=== PATIENT | female | born 1995 | race Hispanic/Latino ===

== ENCOUNTER 2019-03-21 02:22 | Inpatient (IN) | payer OTHER ==
[2019-03-21] MEDS ORDERED: OXYTOCIN/LR 20 UNIT/1,000 ML BAG IV SCH (08:20)
[2019-03-21] MEDS ORDERED: Ringers Lactate 1,000 ML IV SCH (08:20)
[2019-03-21] MEDS ORDERED: Ringers Lactate 1,000 ML IV PRN (08:20)
--- OUTSIDE RECORDS SUMMARY | 2019-03-21 08:26 | XMS REPORT ---
:1995 [facility] Address [address] [place] [address] Dr. Ramsey [address] [place] [id number] Care Team Providers Name Role Phone Unavailable Unavailable Unavailable Problems This patient has no known problems. Allergies, Adverse Reactions, Alerts This patient has no known allergies or adverse reactions. Medications This patient has no known medications.
[2019-03-21] MEDS ORDERED: OXYTOCIN/LR 20 UNIT/1,000 ML BAG IV ONE (09:42)
[2019-03-21] MEDS ORDERED: METHYLERGONOVINE 0.2MG/ML AMP IM PRN (09:54)
[2019-03-21] MEDS ORDERED: BUTORPHANOL 1 MG/ML INJ IV PRN (09:54)
[2019-03-21] MEDS ORDERED: MEPERIDINE HCL 25 MG/0.5 ML IV PRN (09:54)
[2019-03-21] MEDS ORDERED: CARBOPROST TROME 250 MCG/ML IM PRN (09:54)
[2019-03-21] MEDS ORDERED: PROMETHAZINE 25 MG/ML VIAL IV PRN (09:54)
[2019-03-21 10:25] LABS: Absolute Lymphocytes (CBC) 1.7 K/uL (0.7-4.9); Basophils % 0.2 % (0-1.3); Hematocrit 34.3 % (36.0-45.0); Lymphocytes % 12.9 % (15.3-44.8); MPV 8.3 fL (7.6-11.3); RBC Red Blood Cell Count 3.85 M/uL (3.86-4.86); Urine Appearance CLEAR; Urine Bilirubin NEGATIVE (NEG); Urine Blood NEGATIVE (NEG); Urine Color YELLOW; Urine Glucose NEGATIVE (NEG); Urine Protein NEGATIVE (NEG); Urine Specific Gravity 1.015 (1.005-1.030); Urine Urobilinogen 0.2 mg/dL (0.2-1.0)
[2019-03-21 10:36] LABS: Urine Microscopic Reflex ORDER UMIC
[2019-03-21 10:42] LABS: Urine Bacteria <20 /HPF (<20); Urine Culture Reflex Order NOT NEEDED; Urine RBC <5 /HPF (NONE SEEN)
[2019-03-21 11:11] VITALS: BMI 31.8
[2019-03-21] MEDS ORDERED: PENICILLIN G POT 5 MU/100 ML VIAL IV ONE (11:44)
[2019-03-21] MEDS ORDERED: FENTANYL CITR 100 MCG/2 ML IV ONE (14:30)
[2019-03-21] MEDS ORDERED: ROPIVACAINE HCL 0.2% 20ML AMP IV ONE (14:30)
[2019-03-21] MEDS ORDERED: ROPIVACAINE HCL 100 ML IV ONE (14:55)
[2019-03-21] MEDS ORDERED: ROPIVACAINE HCL 20 ML ONE (14:55)
[2019-03-21] MEDS ORDERED: FENTANYL CITR 100 MCG/2 ML ONE (14:55)
[2019-03-21] MEDS ORDERED: ROPIVACAINE HCL 100 ML IV PRN (15:00)
[2019-03-21] MEDS ORDERED: METHYLERGONOVINE 0.2MG/ML AMP IM ONE (15:21)
[2019-03-21] MEDS ORDERED: CARBOPROST TROME 250 MCG/ML IM ONE (15:21)
[2019-03-21] MEDS ORDERED: PENICILLIN 2.5 MU in NA CHLORIDE 0.9% 100 ML IV SCH (15:30)
[2019-03-21] MEDS ORDERED: METHYLERGONOVINE 0.2 MG TAB PO PRN (16:40)
[2019-03-21] MEDS ORDERED: ACETAMINOPHEN 500 MG TAB PO PRN (16:40)
[2019-03-21] MEDS ORDERED: Oxycodone HCl/Acetaminophen 1 TAB TAB PO PRN (16:40)
[2019-03-21] MEDS ORDERED: ONDANSETRON 4 MG (ODT) TAB PO PRN (16:40)
[2019-03-21] MEDS ORDERED: BISACODYL 10 MG RECTAL SUPP RECT PRN (16:40)
[2019-03-21] MEDS ORDERED: DOCUSATE NA/SENNA CONC 1 TAB PO PRN (16:40)
--- NOTE | 2019-03-21 16:43 | P.OP ---
Date of Service: 03/21/19 Findings and Operative Technique FINDINGS: Female fetus in IVONNE position, APGARS of 9/9 at 1 and 5 minutes respectively, weight of 5 lb 3 oz, clear amniotic fluid. Nuchal cord x1. Normal appearing placenta. First degree midline laceration. Stage I: 5 h 8 min ; Stage II: 8 min. HISTORY OF PRESENT ILLNESS: The patient is a 23 year-old female who is a at 39 weeks and 3 days gestation who was admitted for an elective induction of labor. She had adequate care and was complicated by anemia for which she was taking iron. Labs were normal and she had otherwise routine care. On admission, she was noted to be 1cm. She denied complaints and noted positive movement. PROCEDURE DETAILS: The patient was admitted to Labor and Delivery for induction , which was done with pitocin. She requested an epidural for pain control, which was placed with good result. AROM was done, with clear fluid noted. Labor progressed normally. She had a spontaneous vaginal delivery of a live born female with clear fluid from an IVONNE position over an episiotomy. After controlled delivery of the head , a nuchal cord was noted, which was quickly reduced. Next, the shoulders and body followed without difficulty. Bulb suctioning was done. The was placed on the patient's abdomen for skin to skin contact. The cord was clamped and cut. Findings as stated above. There was no depression. Infant was crying, vigorous, and moving all extremities. Spontaneous delivery of an intact placenta with a three-vessel cord was noted at 16:30. On examination, there was 1st degree midline laceration. It was repaired by placing a figure of 8 using 2-0 vicryl. On vaginal exam, there were no noted cervical or vaginal sidewall lacerations. Patient tolerated procedure well and there were no complications. Estimated blood loss was 300 cc. Mother and infant are in recovery doing well at this time.
[2019-03-21] MEDS: IBUPROFEN 200 MG TAB PO PRN (18:10)
[2019-03-21 23:08] LABS: RPR (Rapid Plasma Reagin) NON-REACT (NON-REACT)
[2019-03-22 06:38] LABS: Absolute Lymphocytes (CBC) 2.7 K/uL (0.7-4.9); Basophils % 0.5 % (0-1.3); Hematocrit 28.3 % (36.0-45.0); Lymphocytes % 17.9 % (15.3-44.8); MPV 8.1 fL (7.6-11.3)
[2019-03-22] MEDS ORDERED: DOCUSATE NA 100 MG CAP PO PRN (09:34)
[2019-03-22] MEDS: IBUPROFEN 200 MG TAB PO PRN (12:08)
[2019-03-22] MEDS ORDERED: PRENATAL VITAMIN PO ONE (12:22)
[2019-03-22] MEDS ORDERED: FERROUS SULFATE 325 MG TAB PO ONE (12:23)
[2019-03-22 17:34] VITALS: BP 108/58; TEMP 98.5
[2019-03-22] MEDS ORDERED: FERROUS SULFATE 325 MG TAB PO SCH (21:00)
--- NOTE | 2019-03-22 21:27 | P.DS ---
Admission Date: 03/21/19 Discharge Date: 03/22/19 Disposition: ROUTINE DISCHARGE Discharge Condition: GOOD Reason for Admission: Induction of labor Procedures: Artificial rupture of membranes Epidural pllacement Vaginal delivery over midline episiotomy Repair of episiotomy Brief History of Present Illness: See H&P scanned Hospital Course: Patient progressed in labor well. She delivered a baby girl vaginally and is doing well. Her pain is well controlled. She is voiding well and ambulating without difficulty. She is tolerating a regular diet. She is bonding well with the baby. She is not breast feeding. Encouraged patient to breast feed. Vital Signs/Physical Exam: Temp Pulse Resp BP Pulse Ox 98.5 F 70 16 108/58 L 100 03/22/19 16:00 03/22/19 16:00 03/22/19 16:00 03/22/19 16:00 03/22/19 05:30 General: Alert, In no apparent distress, Oriented x3 HEENT: Atraumatic Neck: Supple Gastrointestinal: Soft and benign (fundus firm and palpable beneath umbilicus) Musculoskeletal: No clubbing, No swelling Integumentary: No rashes, No breakdown Laboratory Data at Discharge: WBC 15.0 K/uL (4.3-10.9) H 03/22/19 06:20 Hgb 9.5 g/dL (12.0-15.0) L 03/22/19 06:20 Hct 28.3 % (36.0-45.0) L D 03/22/19 06:20 Plt Count 220 K/uL (152-406) 03/22/19 06:20 Home Medications: Iron Carb,Gl/FA/B12/C/Docusate [Ferralet 90 Tablet] 1 tab PO DAILY 03/21/19 Pnv72/Iron,Carb&Glu/FA/Dss/Dha [Citranatal 90 Dha Combo Pack] 1 tab PO DAILY Diet: Regular Activity: No lifting more than 10 lbs Followup: Carrington Park DO [ACTIVE - CAN ADMIT] - (Follow up care with Dr. Park in 6 weeks for post visit.)
[2019-03-23] MEDS ORDERED: PRENATAL VITAMIN PO SCH (09:00)
[2019-03-24 19:38] LABS: HBsAG Nonreactive (Nonreactive)
== END 2019-03-22 18:30 | disposition home or self-care (01) | DRG 807 ==
LOC: 2ND-WC 08:23
PROVIDERS: ADMIT Student in an Organized Health Care Education/Training Program; ATTEND Student in an Organized Health Care Education/Training Program
PROC: 10E0XZZ Delivery of Products of Conception, External Approach (ICD-10-PCS; principal; 2019-03-21)
PROC: 0W8NXZZ Division of Female Perineum, External Approach (ICD-10-PCS; 2019-03-21)
PROC: 3E033VJ Introduction of Other Hormone into Peripheral Vein, Percutaneous Approach (ICD-10-PCS; 2019-03-21)
DX: O36.5930 Maternal care for other known or suspected poor fetal growth, third trimester, not applicable or unspecified (principal); Z37.0 Single live birth; Z3A.39 39 weeks gestation of pregnancy; O69.81X0 Labor and delivery complicated by cord around neck, without compression, not applicable or unspecified; O99.02 Anemia complicating childbirth; D64.9 Anemia, unspecified
CPT/HCPCS: 36415; 81003; 81015; 85025; 86592; 86850; 86900; 86901; 87340; J2210; J2590; J2795; J3010

== ENCOUNTER 2020-12-05 14:43 | Emergency (ER) | payer OTHER ==
--- OUTSIDE RECORDS SUMMARY | 2020-12-05 14:46 | XMS REPORT | Continuity of Care Document ---
:1995 Author Organization [facility] t Address [address] [place] [address] Dr. Ramsey [address] [place] [id number] Care Team Providers Name Role Phone Unavailable Unavailable Unavailable Problems This patient has no known problems. Allergies, Adverse Reactions, Alerts This patient has no known allergies or adverse reactions. Medications This patient has no known medications. Procedures This patient has no known procedures. Results This patient has no known results.
[2020-12-05 15:08] LABS: Urine Blood Negative (Negative); Urine Glucose Negative (Negative); Urine Protein Negative (Negative); Urine Specific Gravity 1.025 (1.005-1.030)
--- NOTE | 2020-12-05 16:21 | EDPHYS ---
Physician Documentation [facility] Name: Indira Fernandez Age: 25 yrs Sex: Female : 1995 Arrival Date: 12/05/2020 Time: 14:47 Bed 26 Private MD: ED Physician Enrique Muro HPI: 12/05 16:26 This 25 yrs old Female presents to ER via Ambulatory with complaints of Vag kb Spotting- 6Wks Preg. 16:26 The patient presents to the emergency department with vaginal bleeding, described as kb spotting. Previous pregnancies: in previous pregnancies patient has had. Associated signs and symptoms: Pertinent positives: vaginal bleeding. The patient has not experienced similar symptoms in the past. The patient has not recently seen a physician. Pt reports spotting that started yesterday and positive test last week. States she has an IUD so she isn't sure what is going on. Historical: - Allergies: 14:55 No Known Allergies; ll1 - PMHx: 14:55 None; ll1 - PSHx: 14:55 None; ll1 - Immunization history:: Flu vaccine is not up to date. - Social history:: Smoking status: Patient denies any tobacco usage or history of. ROS: 16:21 Constitutional: Negative for fever, chills, and weight loss, Cardiovascular: Negative kb for chest pain, palpitations, and edema, Respiratory: Negative for shortness of breath, cough, wheezing, and pleuritic chest pain, Abdomen/GI: Negative for abdominal pain, nausea, vomiting, diarrhea, and constipation, MS/Extremity: Negative for injury and deformity, Skin: Negative for injury, rash, and discoloration, Neuro: Negative for headache, weakness, numbness, tingling, and seizure. 16:21 : Positive for spotting. Exam: 16:21 Constitutional: This is a well developed, well nourished patient who is awake, alert, kb and in no acute distress. Head/Face: Normocephalic, atraumatic. Respiratory: Respirations even and unlabored. No increased work of breathing, no retractions or nasal flaring. Skin: Warm, dry with normal turgor. Normal color. MS/ Extremity: Pulses equal, no cyanosis. Neurovascular intact. Full, normal range of motion. Neuro: Awake and alert, GCS 15, oriented to person, place, time, and situation. Moves all extremities. Normal gait. Vital Signs: 14:52 BP 140 / 107; Pulse 84; Resp 17; Temp 98.4; Pulse Ox 100% ; Weight 56.25 kg; Height 4 ll1 ft. 10 in. (147.32 cm); Pain 4/10; 14:52 Body Mass Index 25.92 (56.25 kg, 147.32 cm) ll1 MDM: 15:54 Patient medically screened. kb 16:21 Data reviewed: vital signs, nurses notes. Data interpreted: Pulse oximetry: on room air kb is 100 %. Interpretation: normal. Counseling: I had a detailed discussion with the patient and/or guardian regarding: the historical points, exam findings, and any diagnostic results supporting the discharge/admit diagnosis, radiology results, the need for outpatient follow up, an OB/Gyne specialist, to return to the emergency department if symptoms worsen or persist or if there are any questions or concerns that arise at home. 16:23 ED course: Pt educated that test was negative. Pt will follow up with [facility]. kb 12/05 15:08 Order name: Urine Dipstick-Ancillary; Complete Time: 15:10 [facility] 12/05 15:30 Order name: Urine --Ancillary (enter results) bd Administered Medications: No medications were administered Disposition: 16:22 Irregular vaginal bleeding/spotting. 12/06 07:23 Co-signature as Attending Physician, Enrique Muro MD I agree with the assessment and kdr plan of care. Disposition: 12/05/20 16:21 Discharged to Home. Impression: Encounter for screening, unspecified. - Condition is Stable. - Medication Reconciliation Form, Thank You Letter, Antibiotic Education, Prescription Opioid Use form. - Follow up: Emergency Department; When: As needed; Reason: Worsening of condition. Follow up: Private Physician; When: 2 - 3 days; Reason: Recheck today's complaints, Continuance of care, Re-evaluation by your physician. Signatures: Dispatcher [employer] [facility] Marian Callaway FNP-C FNP-Ckb Rittger, Kevin, MD MD [facility] Greta Cheek RN RN Fan Rodriguez RN RN ll1 Corrections: (The following items were deleted from the chart) 12/05 16:23 16:22 Encounter for test hawk arechiga 16:28 16:21 12/05/2020 16:21 Discharged to Home. Impression: Encounter for screening, ss unspecified. Condition is Stable. Forms are Medication Reconciliation Form, Thank You Letter, Antibiotic Education, Prescription Opioid Use. Follow up: Emergency Department; When: As needed; Reason: Worsening of condition. Follow up: Private Physician; When: 2 - 3 days; Reason: Recheck today's complaints, Continuance of care, Re-evaluation by your physician. kb
--- NOTE | 2020-12-05 16:21 | ER ---
Nurse's Notes [facility] Name: Indira Fernandez Age: 25 yrs Sex: Female : 1995 Arrival Date: 12/05/2020 Time: 14:47 Bed 26 Private MD: Diagnosis: Encounter for screening, unspecified Presentation: 12/05 14:52 Chief complaint: Patient states: Spotting since 3 am. Had a positive test ll1 last week. Has IUD in. G3, P2. Coronavirus screen: Client denies travel out of the [place] in the last 14 days. At this time, the client does not indicate any symptoms associated with coronavirus-19. Ebola Screen: Patient denies travel to an Ebola-affected area in the 21 days before illness onset. Initial Sepsis Screen: Does the patient meet any 2 criteria? No. Patient's initial sepsis screen is negative. Does the patient have a suspected source of infection? Yes: Other: spotting/pelvic pain. Risk Assessment: Do you want to hurt yourself or someone else? Patient reports no desire to harm self or others. Onset of symptoms was December 05, 2020. 14:52 Method Of Arrival: Ambulatory ll1 14:52 Acuity: MARISA 3 ll1 Historical: - Allergies: 14:55 No Known Allergies; ll1 - PMHx: 14:55 None; ll1 - PSHx: 14:55 None; ll1 - Immunization history:: Flu vaccine is not up to date. - Social history:: Smoking status: Patient denies any tobacco usage or history of. Screenin:26 Abuse screen: Denies threats or abuse. Denies injuries from another. Nutritional ss screening: No deficits noted. Tuberculosis screening: Never had TB. Fall Risk None identified. Assessment: 16:26 General: Appears in no apparent distress. comfortable, Behavior is calm, cooperative. ss Pain: Denies pain. Neuro: Level of Consciousness is awake, alert, obeys commands, Oriented to person, place, time, situation. Cardiovascular: Capillary refill < 3 seconds is brisk in bilateral fingers. Respiratory: Airway is patent Respiratory effort is even, unlabored, Respiratory pattern is regular, symmetrical. GI: Patient currently denies diarrhea, nausea, vomiting. : Reports vaginal spotting. EENT: Nares are clear Oral mucosa is moist. Throat is clear. Derm: Skin is intact, is healthy with good turgor, Skin is dry, Skin is pink, warm \T\ dry. normal. Vital Signs: 14:52 BP 140 / 107; Pulse 84; Resp 17; Temp 98.4; Pulse Ox 100% ; Weight 56.25 kg; Height 4 ll1 ft. 10 in. (147.32 cm); Pain 4/10; 14:52 Body Mass Index 25.92 (56.25 kg, 147.32 cm) ll1 ED Course: 14:47 Patient arrived in ED. ds1 14:54 Triage completed. ll1 14:55 Arm band placed on. ll1 15:03 Marian Callaway [facility]-C [facility]. kb 15:03 Enrique Muro MD is Attending Physician. kb 15:09 Urine/ test ok'd by LORY Schrader. ll1 16:06 Greta Cheek, TATYANA is Primary Nurse. ss 16:26 Patient has correct armband on for positive identification. Bed in low position. Call ss light in reach. 16:26 No provider procedures requiring assistance completed. Patient did not have IV access ss during this emergency room visit. Administered Medications: No medications were administered Outcome: 16:21 Discharge ordered by . kb 16:26 Discharged to home ambulatory. ss 16:26 Condition: good 16:26 Discharge instructions given to patient, family, Instructed on discharge instructions, follow up and referral plans. medication usage, Demonstrated understanding of instructions, follow-up care. 16:28 Patient left the ED. ss Signatures: Marian Callaway FNP-C FNP-Rosario Michel ds1 Greta Cheek, TATYANA RN Fan Bryant RN RN ll1
[2020-12-05 16:32] VITALS: BP 140/107; TEMP 98.4; O2SAT 100
[2020-12-05 20:07] LABS: Urine Specific Gravity/Preg 1.025 (1.005-1.030)
== END 2020-12-05 16:28 | disposition home or self-care (01) ==
LOC: ER 14:43
DX: N93.9 Abnormal uterine and vaginal bleeding, unspecified (principal)
CPT/HCPCS: 81003; 81025; 99281

== ENCOUNTER 2024-09-01 15:27 | Emergency (ER) | payer SELFPAY, OTHER ==
[2024-09-01 16:27] LABS: Specific Gravity 1.022 (1.005-1.030)
[2024-09-01 16:28] LABS: Specific Gravity 1.022 (1.005-1.030); Sqamous Epithelial <5 /HPF (None Seen); Urine Bacteria None Seen /HPF (<20); Urine Bilirubin NEGATIVE (Negative); Urine Blood Negative (Negative); Urine Clarity Extremely Turbid (Clear); Urine Color Light-Yellow (Yellow); Urine Culture Reflex Order NOT NEEDED; Urine Glucose NEGATIVE (Negative); Urine Ketones NEGATIVE (Negative); Urine Micro Reflex YN NO BILL MICROSCOPIC; Urine Nitrite NEGATIVE (Negative); Urine Protein NEGATIVE (Negative); Urine RBC None Seen /HPF (None Seen); Urine Urobilinogen Normal (Normal); Urine WBC None Seen /HPF (<5)
[2024-09-01] MEDS ORDERED: FENTANYL CITR 100 MCG/2 ML ONE (17:05)
[2024-09-01] MEDS ORDERED: NA CHLORIDE 0.9% 500 ML ONE (17:06)
[2024-09-01 17:20] LABS: Anion Gap 7.8 mEq/L (5.0-15.0); Potassium 3.8 mEq/L (3.5-5.1)
[2024-09-01 17:22] LABS: Absolute Basophils 0.2 K/uL (0-0.5); Absolute Eosinophils 0.1 K/uL (0-0.5); Absolute Lymphocytes (CBC) 1.7 K/uL (0.7-4.9); Absolute Neutrophil 4.9 K/uL (1.8-8.0); Basophils % 2.2 % (0-1.3); Eosinophils % 1.7 % (0-4.4); Hematocrit 37.1 % (36.0-45.0); Hemoglobin 12.4 g/dL (12.0-15.0); Lymphocytes % 21.5 % (15.3-44.8); MCH 28.9 pg (27.0-35.0); MCHC 33.5 g/dL (32.0-36.0); MCV 86.4 fL (80-100); MPV 7.6 fL (7.6-11.3); Monocytes % 12.1 % (3.3-12.3); Neutrophils % 62.5 % (41.7-73.7); Platelets 340 thou/uL (152-406); Red Cell Distribution Width 13.1 % (12.1-15.2)
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
[2024-09-01] MEDS ORDERED: KETOROLAC 30 MG/ML INJ ONE (18:24)
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
[2024-09-01 19:14] VITALS: BP 109/76; TEMP 99; O2SAT 99
[2024-09-01 19:43] LABS: PT Prothrombin Time 11.8 SECONDS (9.4-12.5); Protime INR 1.06
== END 2024-09-01 19:06 | disposition home or self-care (01) ==
LOC: ER 15:27
DX: R07.9 Chest pain, unspecified (principal); M54.2 Cervicalgia; M54.9 Dorsalgia, unspecified; V49.40XA Driver injured in collision with unspecified motor vehicles in traffic accident, initial encounter
CPT/HCPCS: 36415; 70450; 71260; 72125; 74177; 80048; 81001; 81025; 85025; 85610; 96361; 96374; 96375; 99284; J3010; J7040; Q9967